=== PATIENT | male | born 2000 | race Caucasian/White ===

== ENCOUNTER 2024-01-15 16:43 | Emergency (ER) | payer OTHER, SELFPAY ==
--- NOTE | 2024-01-15 16:56 | ED.NAVMDI ---
HPI - Nausea/Vomiting/Diarrhea General Chief complaint: Unspecified Stated complaint: N/V BLOODY NOSE Time Seen by Provider: 01/15/24 16:51 History of Present Illness HPI Narrative: Pt presents with fever, body aches, several episodes of vomiting but no diarrhea. Pt had nose bleed after vomiting but that has now resolved. Pt has some minimal epigastric and sternal pain from vomiting. Related Data Allergies Allergy/AdvReac Type Severity Reaction Status Date / Time No Known Allergies Allergy Verified 01/15/24 17:16 Review of Systems Review of Systems: All systems reviewed & are unremarkable except as noted in HPI and below Exam Const: General: healthy appearing and no acute distress Nutritional Appearance: well nourished Orientation/consciousness: patient oriented x3 Limitations: no limitations HENMT: Head: normal to inspection Face/Nose/Sinus: Epistaxis present (dried blood in nares no active bleeding) bilaterally Neck: Neck: normal visual inspection and no lymphadenopathy Chest: Chest palpation & inspection: normal inspection of the chest Resp: Effort & Inspection: normal respiratory effort Auscultation: clear to auscultation bilaterally Cardio: Rate: tachycardic Rhythm: regular rhythm GI: GI Palp: Yes Soft to palpation and Yes Tenderness to palpation present (GI) (minimal epigastric tenderness) Auscultation: normal bowel sounds Skin: General skin exam: normal color Rashes: no rashes Neuro: General: patient oriented x3, moves all extremities, no meningeal signs, no focal motor deficits and CN's II-XI intact bilaterally Cranial nerves: Yes Nystagmus not present Speech: normal speech Extrem: General: normal to inspection Psych: Mental Status: mental status grossly normal Affect: normal affect Attitude: cooperative Course Vital Signs Vital signs: Vital Signs Temperature 100.6 F H 01/15/24 16:58 Pulse Rate 126 H 01/15/24 16:58 Respiratory Rate 18 01/15/24 16:58 Blood Pressure 132/80 01/15/24 16:58 Pulse Oximetry 98 01/15/24 16:58 Oxygen Delivery Room Air 01/15/24 16:58 Temperature 100.6 F H 01/15/24 16:58 Pulse Rate 105 H 01/15/24 18:25 Respiratory Rate 18 01/15/24 18:25 Blood Pressure 126/72 01/15/24 18:25 Pulse Oximetry 98 06/26/24 18:25 Oxygen Delivery Room Air 01/15/24 16:58 MDM - Nausea/Vomiting/Diarrhea MDM Narrative Medical decision making narrative: will check labs and give toradol, zofran and IVF. Likley viral but will need labs to rule out liver and GB. Pt has slight elevation of transaminases but otherwise labs look ok. Pt feels better after fluids and zofran but still has not felt urge to urinate so will give 2nd liter of IV fluids and then home on zofran with follow up with PCP to recheck LFT's. Differential Diagnosis Differential diagnosis: Likely food poisoning, gastroenteritis, dehydration and other (pancreatitis hepatitis cholelithiasis to name a few) Lab Data 01/15/24 17:08 01/15/24 17:08 Labs: Lab Results 01/15/24 Range/Units 17:08 WBC 8.9 (4.5-10.0) K/mm3 RBC 4.78 (4.6-6.20) M/mm3 Hgb 15.0 (14.0-18.0) g/dL Hct 42.6 (42.0-52.0) % MCV 89.1 (80-100) fl MCH 31.4 (26-34) pg MCHC 35.2 (32-36) g/dl RDW 11.4 L (11.5-14.5) % Plt Count 182 (150-375) k/mm3 MPV 10.6 H (7.4-10.4) fl Immature Gran % (Auto) 0.5 (0-0.5) % Neut % (Auto) 85.2 H (45.5-73.1) % Lymph % (Auto) 5.4 L (18.3-44.2) % Avery % (Auto) 8.6 H (2.6-8.5) % Eos % (Auto) 0.1 (0-4.4) % Baso % (Auto) 0.2 (0.2-1.2) % Lymph # (Auto) 0.48 L (0.9-3.2) K/mm3 Avery # (Auto) 0.8 H (0.1-0.6) K/mm3 Eos # (Auto) 0.0 (0-0.3) K/mm3 Baso # (Auto) 0.0 (0.0-0.1) K/mm3 Abs Immat Gran (auto) 0.04 H (0.00-0.031) K/mm3 Absolute Neuts (auto) 7.6 H (1.3-6.7) K/mm3 Absolute Nucleated RBC 0.000 (0.0-0.012) K/mm3 Nucleated RBC % 0.0 (0.0-0.2) % Sodium 134 L (137-145) mmol/L Potassium 3.9 (3.
[2024-01-15 16:58] VITALS: BP 132/80; PULSE 126; RESP 18; TEMP 38.1; O2SAT 98
[2024-01-15] MEDS: KETOROLAC 30 MG/ML VIAL (*BKC) 15 MG IV PUSH (17:15)
[2024-01-15] MEDS: SODIUM CHLORIDE 0.9% IV 1,000 ML 999 ML IV CONT ×2 (17:15→19:04)
[2024-01-15] MEDS: ONDANSETRON INJ 4 MG/2 ML VIAL IV PUSH (17:15)
[2024-01-15 17:16] LABS: Basophils Percent Auto 0.2 % (0.2-1.2); Eosinophils Percent Auto 0.1 % (0-4.4); Hematocrit 42.6 % (42.0-52.0); Immature Granulocyte Absolute 0.04 K/mm3 (0.00-0.031); Immature Granulocyte Percent A 0.5 % (0-0.5); Lymphocytes Absolute Auto 0.48 K/mm3 (0.9-3.2); Lymphocytes Percent Auto 5.4 % (18.3-44.2); Mean Corpuscular HGB Conc 35.2 g/dl (32-36); Mean Corpuscular Hemoglobin 31.4 pg (26-34); Mean Corpuscular Volume 89.1 fl (80-100); Mean Platelet Volume 10.6 fl (7.4-10.4); Monocytes Absolute Auto 0.8 K/mm3 (0.1-0.6); Monocytes Percent Auto 8.6 % (2.6-8.5); Neutrophils Absolute Auto 7.6 K/mm3 (1.3-6.7); Neutrophils Percent Auto 85.2 % (45.5-73.1); Platelet Count Result 182 k/mm3 (150-375); Red Blood Count 4.78 M/mm3 (4.6-6.20); Red Cell Distribution Width 11.4 % (11.5-14.5); White Blood Count 8.9 K/mm3 (4.5-10.0)
[2024-01-15 17:26] LABS: Alanine Aminotransferase 53 U/L (6-50); Albumin Level 4.6 g/dL (3.5-5.1); Alkaline Phosphatase 85 U/L (38-126); Anion Gap 9 mmol/L (4-12); Aspartate Amino Transferase 48 U/L (17-59); Bilirubin,Total 1.5 mg/dL (0.2-1.3); Blood Urea Nitrogen 11 mg/dL (9-20); Calcium 8.9 mg/dL (8.4-10.2); Carbon Dioxide 28 mmol/L (22-30); Chloride 97 mmol/L (98-107); Estimated CRCL calculation 120 ml/min; Estimated Glomerular Filt Rate > 60; Glucose 118 mg/dL (65-110); Lipase 37 U/L (23-300); Potassium 3.9 mmol/L (3.4-5.0); Sodium 134 mmol/L (137-145)
[2024-01-15 18:25] VITALS: BP 126/72; PULSE 105; RESP 18; O2SAT 98
[2024-01-15 19:21] VITALS: BP 131/74; PULSE 99; RESP 16; O2SAT 100
== END 2024-01-15 19:31 | disposition home or self-care (01) ==
PROVIDERS: Emergency Provider Emergency Medicine
DX: K29.70 Gastritis, unspecified, without bleeding (principal)
CPT/HCPCS: 36415; 80053; 83690; 85025; 96361; 96374; 96375; 99284; J1885; J2405; J7030

== ENCOUNTER 2024-01-19 11:56 | Emergency (ER) | payer OTHER, SELFPAY ==
[2024-01-19 12:07] VITALS: BP 142/89; PULSE 103; RESP 16; TEMP 36.4; O2SAT 98
--- NOTE | 2024-01-19 12:22 | PC.NURSE ---
pt unable to provide urine sample at this time. pt reports he will press call light when he can go.
[2024-01-19 12:44] LABS: Basophils Percent Auto 0.5 % (0.2-1.2); Eosinophils Absolute Auto 0.2 K/mm3 (0-0.3); Eosinophils Percent Auto 3.2 % (0-4.4); Hematocrit 43.3 % (42.0-52.0); Hemoglobin 14.9 g/dL (14.0-18.0); Immature Granulocyte Absolute 0.07 K/mm3 (0.00-0.031); Immature Granulocyte Percent A 1.3 % (0-0.5); Lymphocytes Absolute Auto 1.44 K/mm3 (0.9-3.2); Lymphocytes Percent Auto 25.9 % (18.3-44.2); Mean Corpuscular HGB Conc 34.4 g/dl (32-36); Mean Corpuscular Hemoglobin 31.1 pg (26-34); Mean Corpuscular Volume 90.4 fl (80-100); Mean Platelet Volume 10.3 fl (7.4-10.4); Monocytes Absolute Auto 0.5 K/mm3 (0.1-0.6); Monocytes Percent Auto 9.7 % (2.6-8.5); Neutrophils Absolute Auto 3.3 K/mm3 (1.3-6.7); Neutrophils Percent Auto 59.4 % (45.5-73.1); Platelet Count Result 222 k/mm3 (150-375); Red Blood Count 4.79 M/mm3 (4.6-6.20); Red Cell Distribution Width 11.4 % (11.5-14.5); White Blood Count 5.6 K/mm3 (4.5-10.0)
[2024-01-19 12:49] LABS: Alanine Aminotransferase 40 U/L (6-50); Albumin Level 4.4 g/dL (3.5-5.1); Alkaline Phosphatase 79 U/L (38-126); Anion Gap 10 mmol/L (4-12); Aspartate Amino Transferase 45 U/L (17-59); Bilirubin,Total 1.1 mg/dL (0.2-1.3); Blood Urea Nitrogen 14 mg/dL (9-20); Carbon Dioxide 30 mmol/L (22-30); Chloride 100 mmol/L (98-107); Estimated CRCL calculation 132 ml/min; Estimated Glomerular Filt Rate > 60; Glucose 112 mg/dL (65-110); Lipase 27 U/L (23-300); Potassium 3.7 mmol/L (3.4-5.0); Sodium 140 mmol/L (137-145)
--- NOTE | 2024-01-19 12:59 | ED.ABDPAIN ---
HPI - Abdominal Pain General Chief Complaint: Abdominal Pain Stated Complaint: abd pain Time Seen by Provider: 01/19/24 12:01 History of Present Illness HPI narrative: Patient is a 23-year-old male who presents to the emergency department this afternoon complaining of mid epigastric abdominal pain for the past 6 days. Patient states that the pain is worse after he eats. And he describes it as a burning sensation in his mid epigastrium that does radiate up to his chest. Patient does not have known history of acid reflux but family members present at bedside states that he does belch a lot. Father who is present with the patient states that he does have a history of severe acid reflux. Patient states that Tums do help with the pain. He does not take any Protonix or Pepcid at home. No additional symptoms or concerns at this time. No nausea or vomiting. Related Data Allergies Allergy/AdvReac Type Severity Reaction Status Date / Time No Known Allergies Allergy Verified 01/15/24 17:16 Review of Systems Review of Systems: All systems are reviewed and are negative unless stated otherwise in the HPI. Exam Narrative: General: Alert, awake, afebrile, in no acute distress. HEENT: PERRL, no rhinorrhea, no post nasal drip, oropharynx clear. Cardiovascular: Regular rate and rhythm, no murmurs, rubs or gallops, no peripheral edema. Respiratory: Clear to auscultation bilaterally, no tachypnea, no wheezing, no rhonchi, no rubs, no respiratory distress. Abdomen: Soft, nontender, nondistended, no rebound, no guarding, no peritoneal signs. Musculoskeletal: No joint swelling or deformity, normal muscle tone. Skin: No rashes or petechia, no signs of infection. Neurological: Alert and oriented to person, place, and time. Follows all commands. No focal deficits, speech is clear and fluent. Course Vital Signs Vital signs: Vital Signs Temperature 97.6 F 01/19/24 12:07 Pulse Rate 103 H 01/19/24 12:07 Respiratory Rate 16 01/19/24 12:07 Blood Pressure 142/89 H 01/19/24 12:07 Pulse Oximetry 98 01/19/24 12:07 Oxygen Delivery Room Air 01/19/24 12:07 Temperature 97.6 F 01/19/24 12:07 Pulse Rate 73 01/19/24 14:28 Respiratory Rate 18 01/19/24 14:28 Blood Pressure 127/84 01/19/24 14:28 Pulse Oximetry 100 01/19/24 14:28 Oxygen Delivery Room Air 01/19/24 12:07 MDM - Abdominal Pain MDM Narrative Medical decision making narrative: The patient was evaluated by myself in the emergency department. History is obtained from patient who is an independent historian and physical exam was performed. External medical records were reviewed at this time. IV was established and pertinent tests were ordered. Patient was administered 40 mg of IV Protonix. 1 L IV fluid bolus was also administered at this time. Laboratory results obtained revealing no acute process. Differential diagnosis considerations include acid reflux, peptic ulcer disease, and esophagitis. Comorbidities impacting this visit include none. I have evaluated and discussed social determinants of health with the patient that could potentially impact subsequent diagnosis and treatment plans. On repeat assessment of the patient, reevaluation revealed that the patient is doing well and is in no acute distress. Patient symptoms have improved since he arrived to our emergency department. Patient continues to have some discomfort in his epigastric region and at this time 2 mg of IV morphine, 4 mg of IV Zofran and a 2 L IV fluid bolus was administered per his request. Repeat vital signs were all reviewed and noted to be stable. Differential diagnosis and treatment plan were discussed with the patient at bedside. Patient agrees with discussion and after shared medical decision making agrees with discharge. All questions were answered to the patient's satisfaction. Patient will follow up with Gastroenterology in 1 week. Patient was provided with str
[2024-01-19] MEDS: PANTOPRAZOLE SODIUM IV 40 MG VIAL IV PUSH (13:08)
[2024-01-19] MEDS: SODIUM CHLORIDE 0.9% IV 1,000 ML 999 ML IV CONT ×2 (13:09→14:23)
[2024-01-19 13:10] LABS: Lactic Acid Reflex 0.8 mmol/L (0.7-2.0)
[2024-01-19 13:12] LABS: Add Urine Microscopic? YES; Appearance Urine Clear (Clear); Bacteria Urine None Seen /hpf; Bilirubin Urine 1+ (Negative); Blood Urine Negative (Negative); Color Urine Dark Yellow (Yellow); Glucose Urine UA Negative (Negative); Ketones Urine 2+ mg/dL (Negative); Leukocyte Esterase Ur Negative LEU/UL (Negative); Nitrate Urine Negative (Negative); Protein Urine Trace mg/dL (Negative); RBC Urine 0-2 /hpf (0-2); Specific Grav Ur 1.028 (1.001-1.035); Squamous Epithelial Cell Urine Occasional /hpf (Few); WBC Urine 0-5 /hpf (0-3); pH Urine 5.5 (5.0-9.0)
[2024-01-19] MEDS: MORPHINE SULFATE (*CRX) 2 MG/ML INJ IV PUSH (14:24)
[2024-01-19] MEDS: ONDANSETRON INJ 4 MG/2 ML VIAL IV PUSH (14:24)
[2024-01-19 14:28] VITALS: BP 127/84; PULSE 73; RESP 18; O2SAT 100
[2024-01-19 15:26] VITALS: BP 138/75; PULSE 83; RESP 12; O2SAT 100
[2024-01-19] MEDS: SUCRALFATE 1 GM TABLET PO (15:28)
== END 2024-01-19 15:36 | disposition home or self-care (01) ==
PROVIDERS: Emergency Medicine; Emergency Provider Emergency Medicine
DX: R10.13 Epigastric pain (principal)
CPT/HCPCS: 36415; 80053; 81001; 82248; 83605; 83690; 85025; 96361; 96374; 96375; 99284; A9270; C9113; J2270; J2405; J7030